=== PATIENT | male | born 1970 | race Hispanic/Latino ===

== ENCOUNTER 2019-09-10 18:03 | Observation (INO) | payer OTHER ==
[~2019-09-10] VITALS: Ht 165.1 cm; Wt 72.9 kg
[2019-09-10] MEDS ORDERED: NITROGLYCERIN 1GM/1 INCH PACKET TD ONE (18:25)
[2019-09-10 18:28] LABS: BASOPHILS % (AUTO) 0.5 % (0.0-5.0); EOSINOPHILS % (AUTO) 1.4 % (0.0-8.0); HEMATOCRIT 47.5 % (42-54); LYMPHOCYTES % (AUTO) 43.4 % (21.0-51.0); MEAN CORPUSCULAR HEMOGLOBIN 30.9 pg (27.0-33.0); MEAN CORPUSCULAR HGB CONC 33.7 g/dL (32.0-36.0); MEAN CORPUSCULAR VOLUME 91.9 fL (79-99); MONOCYTES % (AUTO) 9.4 % (3.0-13.0); NEUTROPHILS % (AUTO) 44.9 % (40.0-77.0); PLATELET COUNT (AUTO) 264 K/uL (130-400); RED BLOOD CELL COUNT(AUTO) 5.17 MIL/uL (4.50-6.20); RED CELL DISTRIBUTION WIDTH 13.2 % (11.0-15.5); WHITE BLOOD COUNT (AUTO) 10.6 K/uL (4.8-10.8)
[2019-09-10 18:38] LABS: INR 0.98 (0.85-1.15); PARTIAL THROMBOPLASTIN TIME 25.1 SEC (26.3-35.5); PROTHROMBIN TIME 10.3 SEC (9.6-11.6)
[2019-09-10 18:59] LABS: CREATININE 1.3 mg/dL (0.5-1.5); POTASSIUM 3.2 mmol/L (3.5-5.1)
[2019-09-10 19:04] LABS: ALBUMIN 4.3 g/dL (3.5-5.0); BILIRUBIN,TOTAL 0.6 mg/dL (0.2-1.0); TOTAL PROTEIN, SERUM 8.7 g/dL (6.0-8.3)
[2019-09-10 19:27] LABS: B-TYPE NATRIURETIC PEPTIDE 47 pg/mL (0-100)
[2019-09-10] MEDS ORDERED: LIDOCAINE HCL 2% VISCOUS 15 ML UDCUP ONE (20:21)
[2019-09-10] MEDS ORDERED: MAG HYDROX/AL HYDROX/SIMETH ES 30 ML SUSP UDCUP ONE (20:21)
[2019-09-10 21:00] LABS: APPEARANCE,URINE Clear (CLEAR); BILIRUBIN,URINE Negative (NEGATIVE); COLOR,URINE Yellow (YELLOW); GLUCOSE, URINE (UA) >=1000 mg/dL (NEGATIVE); KETONES,URINE Trace mg/dL (NEGATIVE); LEUKOCYTE ESTERASE ,URINE Negative (NEGATIVE); NITRATE,URINE Negative (NEGATIVE); OCCULT BLOOD,URINE Negative (NEGATIVE); PH,URINE 5.5 (5.0-8.0); PROTEIN,URINE Negative (NEGATIVE)
[2019-09-10 21:12] LABS: BACTERIA,URINE None Seen /HPF (None Seen); SQUAMOUS EPITHELIAL CELL,UR 0-2 /HPF (0-2); WBC,URINE 0-1 /HPF (0-1)
[2019-09-10] MEDS ORDERED: CEFTRIAXONE SODIUM 2 GM VIAL ONE (23:03)
[2019-09-10] MEDS ORDERED: SODIUM CHLORIDE 0.9% 100 ML IV ONE (23:04)
[2019-09-10] MEDS ORDERED: LIDOCAINE HCL-MPF 1% 2ML VIAL IJ PRN (23:30)
[2019-09-10] MEDS ORDERED: GLUCAGON 1MG KIT 1 MG ML IM PRN (23:30)
[2019-09-10] MEDS ORDERED: MAGNESIUM 2GM PREMIX 50ML 50 ML IV PRN (23:30)
[2019-09-10] MEDS ORDERED: POTASSIUM CHLORIDE 20MEQ/100ML 100 ML IV PRN (23:30)
[2019-09-10] MEDS ORDERED: POTASSIUM CHLORIDE 20 MEQ ERTAB PO SCH (23:30)
[2019-09-10] MEDS ORDERED: MAGNESIUM 2GM PREMIX 50ML 50 ML IV SCH (23:30)
[2019-09-10] MEDS ORDERED: DEXTROSE 50%-WATER 50 ML DISP.SYRIN IV PRN (23:30)
[2019-09-10] MEDS ORDERED: ONDANSETRON HCL 4 MG/2 ML VIAL IV PRN (23:45)
[2019-09-10] MEDS ORDERED: SODIUM CHLORIDE 0.9% 1000ML 1,000 ML IV SCH (23:45)
[2019-09-10] MEDS ORDERED: NITROGLYCERIN 0.4 MG SL TAB SL PRN (23:45)
[2019-09-10] MEDS ORDERED: ACETAMINOPHEN 325 MG TAB PO PRN ×2 (23:45)
[2019-09-11] VITALS (7 sets, daily range): BP systolic 103–141; BP diastolic 64–86
[2019-09-11 00:50] LABS: CREATINE KINASE, TOTAL 124 U/L (21-232); MYOGLOBIN 48 ng/mL (10-92); TROPONIN I < 0.04 ng/mL (0.00-0.06)
[2019-09-11 00:59] LABS: HEMOGLOBIN A1C 7.8 % (4.0-6.0)
[2019-09-11] MEDS: SODIUM CHLORIDE 0.9% 1000ML 1,000 ML IV SCH ×3 (03:23→19:31)
[2019-09-11] MEDS: INSULIN HUMULIN R 100 UNIT/ML 3ML SQ SCH ×4 (06:00→18:00)
[2019-09-11 06:23] LABS: MEAN CORPUSCULAR HEMOGLOBIN 30.9 pg (27.0-33.0); MEAN CORPUSCULAR VOLUME 93.5 fL (79-99); PLATELET COUNT (AUTO) 212 K/uL (130-400); RED CELL DISTRIBUTION WIDTH 13.5 % (11.0-15.5); WHITE BLOOD COUNT (AUTO) 10.2 K/uL (4.8-10.8)
[2019-09-11 06:54] LABS: CREATININE 1.2 mg/dL (0.5-1.5); POTASSIUM 4.1 mmol/L (3.5-5.1)
[2019-09-11 07:00] LABS: ALBUMIN 3.7 g/dL (3.5-5.0); BILIRUBIN,TOTAL 0.5 mg/dL (0.2-1.0); MAGNESIUM 2.6 mg/dL (1.80-2.40); TOTAL PROTEIN, SERUM 7.6 g/dL (6.0-8.3)
[2019-09-11 07:33] LABS: EOSINOPHILS % (MANUAL) 1 % (1-6); LYMPHOCYTES % (MANUAL) 39 % (22-44); MAN.DIFF COMMENT-IMPRESSION MANUAL DIFFERENTIAL; MONOCYTES % (MANUAL) 5 % (2-9); PLATELET MORPHOLOGY COMMENT ADEQUATE; REACTIVE LYMPHOCYTES 2 % (0-0); SEGMENTED NEUTROPHILS % 53 % (40-70)
[2019-09-11] MEDS ORDERED: GADODIAMIDE 10 MMOL/20 ML VIAL IV ONE (08:16)
[2019-09-11] MEDS: FAMOTIDINE/PF 20 MG/2 ML VIAL IV SCH ×2 (08:35→21:18)
[2019-09-11] MEDS: METOPROLOL TARTRATE 25 MG TAB PO SCH ×2 (08:35→21:18)
[2019-09-11] MEDS: ASPIRIN 81MG TAB.CHEW PO SCH (08:35)
[2019-09-11] MEDS: ENOXAPARIN SODIUM 30 MG/0.3 ML SQ SCH (08:36)
--- NOTE | 2019-09-11 10:30 | NUR ---
DR ADAN CONSULT INFORMED DR ADAN OF NEW CONSULT. INFORMED HIM OF THE RESULTS OF MRCP. DR ADAN STATED HE DOESN'T NEED TO SEE THIS PATIENT. RECOMMENDED FOR THE PRIMARY TO CONSULT SX.
--- NOTE | 2019-09-11 12:00 | NUR ---
DR SOTO CONSULTED. AWARE OF CONSULT.
--- NOTE | 2019-09-11 17:30 | NUR ---
DR HERNANDEZ TALK TO SAIRA BERMUDEZ, SAIRA STATED THAT HE WILL COME TOMORROW TO SEE PATIENT.
[2019-09-12 03:25] VITALS: BP 111/62
[2019-09-12] MEDS: SODIUM CHLORIDE 0.9% 1000ML 1,000 ML IV SCH (05:31)
[2019-09-12 06:34] LABS: BASOPHILS % (AUTO) 0.7 % (0.0-5.0); EOSINOPHILS % (AUTO) 2.1 % (0.0-8.0); HEMATOCRIT 47.4 % (42-54); LYMPHOCYTES % (AUTO) 38.6 % (21.0-51.0); MEAN CORPUSCULAR HEMOGLOBIN 30.6 pg (27.0-33.0); MEAN CORPUSCULAR HGB CONC 32.7 g/dL (32.0-36.0); MEAN CORPUSCULAR VOLUME 93.7 fL (79-99); MONOCYTES % (AUTO) 7.9 % (3.0-13.0); NEUTROPHILS % (AUTO) 50.4 % (40.0-77.0); PLATELET COUNT (AUTO) 234 K/uL (130-400); RED BLOOD CELL COUNT(AUTO) 5.06 MIL/uL (4.50-6.20); RED CELL DISTRIBUTION WIDTH 13.6 % (11.0-15.5)
[2019-09-12 06:58] LABS: BILIRUBIN,TOTAL 0.6 mg/dL (0.2-1.0); CREATININE 1.1 mg/dL (0.5-1.5); POTASSIUM 3.9 mmol/L (3.5-5.1); TOTAL PROTEIN, SERUM 8.3 g/dL (6.0-8.3)
[2019-09-12] MEDS: INSULIN HUMULIN R 100 UNIT/ML 3ML SQ SCH ×2 (07:22→11:52)
[2019-09-12 08:00] VITALS: BP 108/80
[2019-09-12] MEDS: METOPROLOL TARTRATE 25 MG TAB PO SCH (10:34)
[2019-09-12] MEDS: FAMOTIDINE/PF 20 MG/2 ML VIAL IV SCH (10:34)
[2019-09-12] MEDS: ASPIRIN 81MG TAB.CHEW PO SCH (10:36)
[2019-09-12] MEDS: ENOXAPARIN SODIUM 30 MG/0.3 ML SQ SCH (10:38)
--- NOTE | 2019-09-12 14:34 | NUR ---
INTIAL Patient lives alone. Emergency contact is his domestic partner, [phone]. No home services or DME. Patient is able to complete ADL's independently and drives. PCP is Dr. Tenzin Prather. Pharmacy is [facility] located on [address]. DCP is home. Addendum: 09/12/19 at 1436 by CHINA ROJAS SS Amended: Links added.
--- NOTE | 2019-09-12 14:55 | NUR ---
PATIENT GIVEN DISCHARGE INSTRUCTIONS AND VERBALIZED UNDERSTANDING ,IN REMOVED AND TELEMETRY DISCONTINUED , PATIENT DENIES PAIN AT THIS TIME , PATIENT INSTRUCTED TO CALL DR SOTO OFFICE FOR FOLLOW-UP APPOINTMENT, INSTRUCTED TO CONTINUE HOME MEDICATIONS , VIOCE NO CONCERNS OR QUESTIONS AT THIS TIME. PATIENT WALKED TO [facility] AND LEFT WITH FAMILY FOR HOME
== END 2019-09-12 14:50 | disposition home or self-care (01) ==
LOC: EDH 18:03 → EDHIP 22:31 → INTOOBSV 22:31 → 4BH 22:49
PROVIDERS: ADMIT Internal Medicine; ATTEND Internal Medicine
DX: K80.64 Calculus of gallbladder and bile duct with chronic cholecystitis without obstruction (principal); R07.89 Other chest pain; I10 Essential (primary) hypertension; E11.9 Type 2 diabetes mellitus without complications; I25.10 Atherosclerotic heart disease of native coronary artery without angina pectoris; I25.2 Old myocardial infarction; E87.1 Hypo-osmolality and hyponatremia; E87.6 Hypokalemia; E83.42 Hypomagnesemia; Z95.5 Presence of coronary angioplasty implant and graft; Z79.899 Other long term (current) drug therapy; Z79.4 Long term (current) use of insulin; E78.5 Hyperlipidemia, unspecified; Z87.442 Personal history of urinary calculi
CPT/HCPCS: 36415 ×3; 71045; 74183; 76705; 80053 ×3; 80061; 81001; 82550 ×2; 82948 ×6; 83036; 83735 ×2; 83874; 83880; 84484 ×3; 85025 ×3; 85610; 85730; 87040 ×2; 93005 ×3; 96365; 96372; 96375; 96376 ×2; 99285; A9579; G0378 ×3; J0696; J1650; J1815 ×2; J3475; J3490 ×3; J7030 ×2